=== PATIENT | female | born 1930 | race Caucasian/White ===

== ENCOUNTER 2018-01-25 18:38 | Inpatient (IN) | payer OTHER ==
[~2018-01-25] VITALS: Ht 149.9 cm; Wt 64.0 kg
--- NOTE | ~2018-01-25 | EKG ---
[place] [address] [address] [facility] [place] [address] ELECTROCARDIOGRAM REPORT Name: MICHELLE MARTINEZ Room #: 455-P ADM IN M.R.#: [id number] Admission: 01/25/18 Attend Phys: Nura Pickett DO Discharge: Date of : [birth year] Report #: [id number] THIS REPORT FOR: //name// [facility] ED Test Date: 2018-01-25 Test Time: 19:26:58 Pat Name: MICHELLE MARTINEZ Department: Room: [facility] Gender: F Lining Closer: chika : 1930 Requested By: Kitty Sanchez Order Number: [id number] MD: Dre Simons Measurements Intervals [place] Rate: 78 P: 157 NV: 152 QRS: -10 QRSD: 104 T: 104 QT: 400 QTc: 456 Interpretive Statements Atrial fibrillation with occasional premature ventricular complexes Poor R wave progression Nonspecific ST and T wave abnormality Compared to ECG 05/11/2016 06:51:20 Ectopic atrial rhythm now present Ventricular premature complex(es) now present Electronically Signed On 01-26-2018 17:19:38 CDT by Dre Simons [email or web address] <ELECTRONICALLY SIGNED> By: Dre Simons MD, [facility] 01/26/18 1719 192 25 Dre Simons MD, [facility] /EPI
--- NOTE | ~2018-01-25 | H ---
[facility] [place] [address] HISTORY AND PHYSICAL Name: MICHELLE MARTINEZ Room #: 455-P ADM IN M.R.#: [id number] Admission: 01/25/18 Attend Phys: Nura Pickett DO Discharge: Date of : [birth year] Report #: [id number] THIS REPORT FOR: //name// CC: Dre Simons MD [facility] Nura Cook MD DATE OF SERVICE: 01/25/2018 HISTORY OF PRESENT ILLNESS: This is an 87-year-old white female who was admitted after overnight observation status because of nausea, vomiting, abdominal pain, weakness and dyspnea. The patient was seen in my office on 01/11/2018 with acute bronchitis and was placed on Levaquin, prednisone taper, Xopenex HFA 2 puffs q. 4 hours and she thought she was getting better, but she remained weak. Then last night before dinner, she developed abdominal pain with chills and severe nausea and vomited four times. Her family brought her to the Emergency Room where she vomited again. This morning, she still feels weak with some abdominal discomfort, but wants to try to eat. After vomiting several times, she had some blood streaked emesis. She has not had melena; however, she has been iron deficient and taking oral iron recently. 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 PAST SURGICAL HISTORY: She has had cholecystectomy, right shoulder surgery, tonsillectomy besides her complete hysterectomy. MEDICATIONS ON ADMISSION: Coumadin 2.5 mg daily, Flonase spray 1 each nostril daily, latanoprost 0.05% 1 drop each eye at bedtime, Prolia 60 mg subcutaneously every 6 months for osteoporosis, Simbrinza 1 drop affected eye twice a day, Symbicort 160/4.5 two puffs b.i.d., Mag-Ox 400 mg every other day, vitamin D 1600 mg daily, torsemide 20 mg b.i.d., ranitidine 150 mg at bedtime, spironolactone 25 mg daily, metoprolol succinate 25 mg daily, KCl 10 mEq once daily, fenofibrate 145 mg daily, L-thyroxine 0.075 mg daily. She recently stopped omeprazole and Niaspan. ALLERGIES: MORPHINE AND PENICILLIN. REVIEW OF SYSTEMS: She lives in a shelter community. She usually walks to [address] [address] HISTORY AND PHYSICAL Name: MICHELLE MARTINEZ Room #: 455-P [facility] IN M.R.#: [id number] Admission: 01/25/18 Attend Phys: Nura Pickett DO Discharge: Date of : [birth year] Report #: [id number] the dining room 3 times a day with her walker. She wears oxygen at 2-3 L continuously and sleeps with BiPAP. She has not had chest pain or diarrhea or dysuria, rash, confusion or dysphagia. PHYSICAL EXAMINATION: GENERAL: Pleasant, elderly white female looking somewhat frail. VITAL SIGNS: BP 150/48, temperature 37.0, pulse is 100, respirations 20, O2 sat 93% on 3 liters by nasal cannula. HEAD: No rash or trauma. EARS, NOSE AND THROAT: No oral lesions. No conjunctivitis. EYES: No icterus. No excessive conjunctivitis. NECK: Supple, without bruits. LUNGS: Clear at present. She was wheezing in my office 2 weeks ago. HEART: Rhythm irregular with atrial fib, but rate is controlled. ABDOMEN: Soft, without mass, tenderness or guarding. Bowel sounds are present. EXTREMITIES: Have trace ankle edema. NEUROLOGIC: She is alert and well oriented and an accurate historian. Has sensory deficits in her feet. No lateralized deficits. LABORATORY DATA: Chest x-ray shows chronic interstitial edema without vascular congestion. Urinalysis shows pyuria and culture is negative. BNP is elevated to 1215, but her creatinine is elevated to 1.7, BUN up to 90. Sodium 134, potassium 3.8, CO2 of 31, blood sugar 104, lactic acid 0.7, calcium 10.5. Liver enzymes normal. Albumin normal. Protime INR 2.7, hemoglobin 10.4, white count 22,000. IMPRESSION: 1. Nausea and vomiting, abdominal discomfort, possibly gastroenteritis. 2. Dyspnea and fatigue with recent acute bronchitis, possibly vhnzr-sq-spgffkv diastolic congestive heart failure. 3. Chronic obstructive pulmonary disease with pulmonary hypertension and restrictive lung disease. 4. Chronic atrial fibrillation. 5. Obstructive sleep apnea. 6. Chronic kidney disease stage 3. 7. Lumbar degenerative disk disease. 8. Idiopathic peripheral neuropathy. 9. Mixed hyperlipidemia. 10. Hypothyroidism. 11. Hypertension, essential. PLAN: Advance diet, continue telemetry, echocardiogram per the welding operator's recommendations, increase diuresis, await urine culture, try to stop IV fluids, physical therapy, to increase activity. [facility] [address] [place] [address] HISTORY AND PHYSICAL Name: MICHELLE MARTINEZ Room #: 455-P [facility] IN .R.#: [id number] Admission: 01/25/18 Attend Phys: Nura Pickett DO Discharge: Date of : [birth year] Report #: [id number] PROGNOSIS: Guarded. <ELECTRONICALLY SIGNED> By: Nura Pickett DO 01/27/18 0730 1141 1226 Nura Pickett DO /nt
--- NOTE | ~2018-01-25 | HC ---
[facility] [place] [address] CONSULTATION Name: MICHELLE MARTINEZ Room #: 455-P ADM IN M.R.#: [id number] Admission: 01/25/18 Attend Phys: Nura Pickett DO Discharge: Date of : [birth year] Report #: [id number] THIS REPORT FOR: //name// CC: Nura Pickett REASON FOR CONSULTATION: Atrial fibrillation. HISTORY OF PRESENT ILLNESS: The patient is an 87-year-old woman with a history of permanent atrial fibrillation as well as severe oxygen dependent lung disease and pulmonary hypertension. She has sleep apnea for which she uses nocturnal BiPAP. Prior echocardiography has demonstrated normal left ventricular systolic function with severe pulmonary hypertension. She now presents with a month of nonproductive cough, generalized weakness and occasional nausea. She has also had several episodes of emesis. She has had occasional, mild lower extremity edema without orthopnea. Her atrial fibrillation has been rate controlled and clinically asymptomatic. No fevers, chills or night sweats. ALLERGIES: SHE IS ALLERGIC TO PENICILLIN AND MORPHINE. PAST MEDICAL HISTORY: Her past history of medical records have been reviewed and include a history of hypertension, severe pulmonary hypertension, COPD, sleep apnea, cataract excision, chronic kidney disease, history of gallstone pancreatitis with laparoscopic cholecystectomy, breast biopsy, rotator cuff surgery, hysterectomy. MEDICATIONS: Include metoprolol succinate 25 mg daily, levothyroxine 75 mcg daily, Aldactone 25 mg daily, potassium 20 mEq daily, torsemide 40 mg daily, Symbicort, ranitidine, warfarin 3.5 mg daily. SOCIAL HISTORY: She has never been a smoker. She lives at [place]. FAMILY HISTORY: Unremarkable for premature coronary artery disease. REVIEW OF SYSTEMS: All systems negative except as that noted above. PHYSICAL EXAMINATION: GENERAL: This is a pleasant elderly woman in no distress. VITAL SIGNS: Blood pressure is 135/50, heart rate of 80 and irregular. She is afebrile, 4 feet 11 inches tall. HEENT: There are neither xanthelasma, subcutaneous xanthomata, oral mucosal or digital cyanosis or kyphoscoliosis present. CHEST: Reveals diminished breath sounds at both bases. CARDIOVASCULAR: Irregularly irregular rhythm with a loud pulmonic closure sound. ABDOMEN: Soft and nontender. EXTREMITIES: Without cyanosis, clubbing or edema. Radial pulses are 2+. NEUROLOGIC: She is alert with a nonfocal exam. [address] [address] CONSULTATION Name: MICHELLE MARTINEZ Room #: 455-P [facility] IN M.R.#: [id number] Admission: 01/25/18 Attend Phys: Nura Pickett DO Discharge: Date of : [birth year] Report #: [id number] LABORATORY DATA: Sodium 137, potassium 3.8, creatinine 1.6, which is at or near her baseline. Troponin 0.11. Of note, she has never had a normal troponin level dating back to 2013. None of them have been diagnostically abnormal, but none have been normal. ProBNP of 1215, normal in this age group. INR 2.7. White count 14,000, hemoglobin 9, hematocrit 27, platelet count 164. Chest x-ray demonstrates mild patchy infiltrates. CT of the abdomen demonstrates no acute intra-abdominal process. EKG: Atrial fibrillation, occasional premature ventricular aberrantly conducted supraventricular complexes. IMPRESSION: 1. Chronic obstructive pulmonary disease exacerbation; severe intrinsic lung disease and severe pulmonary hypertension. 2. Jzgda-ib-xuewuks diastolic heart failure. 3. Permanent atrial fibrillation. 4. Obstructive sleep apnea. 5. Anemia. 6. Chronic kidney disease. 7. Hypercoagulable. RECOMMENDATIONS: 1. Continued gentle diuretic therapy. 2. Echocardiogram with Doppler to reassess pulmonary artery pressures. 3. Pulmonary consultation. I suspect her primary symptoms are based on exacerbation of her severe underlying lung disease. I discussed this with the patient in detail. Thank you for asking me to participate in her care. <ELECTRONICALLY SIGNED> By: Dre Simons MD, FACC 01/26/18 1533 0822 1331 Dre Simons MD, FACC /nt
--- NOTE | ~2018-01-25 | HC ---
[facility] [place] [address] CONSULTATION Name: MICHELLE MARTINEZ Room #: 455-P [facility] IN M.R.#: [id number] Admission: 01/25/18 Attend Phys: Nura Pickett DO Discharge: 01/30/18 Date of : [birth year] Report #: [id number] THIS REPORT FOR: //name// CC: Dre Simons MD [facility] Nura Pickett DO DATE OF SERVICE: 01/26/2018 PULMONARY CONSULTATION REFERRING PROVIDER: Nura Pickett DO REASON FOR CONSULTATION: COPD and pulmonary hypertension. CHIEF COMPLAINT: Malaise. HISTORY OF PRESENT ILLNESS: Our group was asked to evaluate the patient in consultation while hospitalized at [facility]. She is well known to me from longstanding office visits for underlying COPD as well as some pulmonary hypertension and may have some underlying pulmonary fibrosis. Most recent PFTs revealed a mixed obstructive and restrictive pattern that was severe in 09/2017 with an FEV1 measured at 0.56 or 43% of predicted. Typically has some supplemental oxygen and also has a history of obstructive sleep apnea on nocturnal BiPAP with 2 liters bleed. The patient again had been feeling poorly, not feeling herself, presented to the Emergency Department for further evaluation and had some outpatient evaluation just prior to this by Dr. Pickett who noted some anemia. States she had been on some iron replacement therapy, but continued to feel poorly. Denies any significant cough. Yesterday, had some nausea, this has subsided. No fevers, chills or sweats noted. On admission, a white blood cell count was markedly elevated. Chest x-ray showed cardiomegaly and perhaps some bibasilar interstitial infiltrates that are unclear of chronicity. The patient also had a lower extremity Doppler due to patient complains of increasing lower extremity edema, right greater than left. No DVT was noted. The patient's INR was noted to be 2.7 from her chronic anticoagulant therapy. Also, evaluated by Dr. Simons of cardiology with echocardiogram pending and concerns regarding her pulmonary hypertension being more severe. Currently, resting comfortably in bed and able to ambulate some, but states she is feeling somewhat better. ALLERGIES: PENICILLIN AND MORPHINE. PAST MEDICAL HISTORY: 1. Severe COPD as described in HPI. 2. Chronic hypoxemic respiratory failure. 3. History of atrial fibrillation. [address] [address] CONSULTATION Name: MICHELLE MARTINEZ Room #: [address] [place] [address] [place] [facility].#: [id number] Admission: 01/25/18 Attend Phys: Nura Pickett, DO Discharge: 01/30/18 Date of : [birth year] Report #: [id number] 4. Gastroesophageal reflux disease. 5. Hyperlipidemia. 6. Hypertension. 7. Hypothyroidism. 8. Obstructive sleep apnea, on nocturnal BiPAP with supplemental oxygen bleed. 9. History of uterine cancer. PAST SURGICAL HISTORY: Includes cataract surgery, cholecystectomy, hernia repair, hysterectomy, surgery for retinal detachment, rotator cuff repair, and tonsillectomy. SOCIAL HISTORY: The patient is a nonsmoker, no alcohol consumption. FAMILY HISTORY: Significant for mother who had a stroke at 86 and the father of lung cancer at age 64. REVIEW OF SYSTEMS: CONSTITUTIONAL: Notes no fever or chills. Some general malaise and nausea. ENT: No upper respiratory congestion or dysphagia. CARDIOVASCULAR: As described in HPI, but no chest pains or palpitations. GASTROINTESTINAL: Nausea, some vomiting with no significant blood, some dark stools, although she attributes this to iron therapy. GENITOURINARY: No dysuria, no frequency. INTEGUMENT: Denies any rash. MUSCULOSKELETAL: Somewhat increased lower extremity edema and cramping in the lower extremities, particularly with sleep. PHYSICAL EXAMINATION: VITAL SIGNS: Afebrile, pulse 60s, respiratory rate 18, blood pressure 148/59, oxygen saturation 97% on 3 liters. GENERAL: This is a pleasant elderly woman, does not appear in distress. ENT: Clear oropharynx. NECK: Supple, no lymphadenopathy. LUNGS: Bilateral basilar inspiratory crackles, no wheezes. CARDIOVASCULAR: Heart was irregular. No murmurs. ABDOMEN: Soft, nontender, no masses, no hepatosplenomegaly. EXTREMITIES: With 1+ edema, right greater than the left. INTEGUMENT: No rash. LABORATORY DATA: White blood cell count on admission was 22.5, currently 15, hemoglobin 9, hematocrit 28, platelet count 164. Sodium 137, potassium 3.7, chloride 101, bicarbonate 28, BUN 79, creatinine 1.6, glucose 98. These labs were improved from admission. ProBNP was 1215. Troponin 0.11. Liver enzymes were normal. CT of the abdomen and pelvis was performed due to abdominal pain, nausea, vomiting. She has since subsided, but no acute findings noted, significant vascular disease in the abdomen appreciated. Lower extremity [facility] [address] [place] [address] CONSULTATION Name: MICHELLE MARTINEZ Room #: 455-P [facility] IN M.R.#: [id number] Admission: 01/25/18 Attend Phys: Nura Pickett, DO Discharge: 01/30/18 Date of : [birth year] Report #: [id number] Dopplers were negative. Chest x-ray as described previously. IMPRESSION: 1. General debilitation and malaise of unclear etiology, multitude of problems could be applied in this case including underlying anemia and perhaps worsening pulmonary hypertension that needs further evaluation. 2. Severe pulmonary hypertension, await echo findings. 3. Chronic obstructive pulmonary disease. 4. Chronic hypoxemia. 5. Bibasilar infiltrates, uncertain chronicity. 6. Anemia. SUGGESTIONS: 1. We will ask Gastroenterology to evaluate regarding low iron and anemia. 2. Await echo. 3. Noncontrast high resolution CT scan of the chest, last CT chest noted to be about 2013. 4. Continue with bronchodilators. 5. Await cultures. Continue with Rocephin for now. 6. Trend INR. 7. Diuresis as tolerated. 8. Additional recommendations will follow. Thank you for requesting our suggestions. <ELECTRONICALLY SIGNED> By: Mikie Cook MD 02/05/18 1204 1238 [id number] Mikie Cook MD /nt
--- NOTE | ~2018-01-25 | D ---
[facility] [place] [address] DISCHARGE SUMMARY Name: MICHELLE MARTINEZ Room #: 455-P ADM IN M.R.#: [id number] Admission: 01/25/18 Attend Phys: Nura Pickett DO Discharge: Date of : [birth year] Report #: [id number] THIS REPORT FOR: //name// CC: Dre Simons MD [facility] Nura Cook MD DATE OF SERVICE: 01/30/2018 DATE OF DISCHARGE: 01/30/2018. HISTORY OF PRESENT ILLNESS: This is an 87-year-old white female who was admitted with nausea, vomiting, abdominal pain, weakness and dyspnea. She had been getting ill for over the past 2 weeks, after having been treated for acute bronchitis. However, on the evening of admission, she vomited several times and was extremely nauseated. There was no hematemesis or melena. PAST MEDICAL HISTORY: Her past history includes COPD; chronic atrial fibrillation; hypertension; chronic anemia; obstructive sleep apnea; hypothyroidism; adenocarcinoma of the uterus, treated with complete hysterectomy; osteoporosis; restrictive lung disease and idiopathic peripheral neuropathy. PHYSICAL EXAMINATION: GENERAL: Revealed an uncomfortable, tachypneic white female. VITAL SIGNS: She was afebrile. BP 150/48. HEAD AND NECK: Revealed dry mucosa. LUNGS: Revealed some scattered wheezes. HEART: Rhythm was irregular, but rate was initially controlled. ABDOMEN: Soft and nontender. EXTREMITIES: Had trace edema. NEUROLOGIC: Alert. She had sensory deficit in her feet. She was an accurate historian. LABORATORY DATA: Chest x-ray showed chronic interstitial changes, without vascular congestion. Urinalysis showed pyuria. Blood culture was negative. BNP was high. Creatinine was elevated to 1.7, BUN up to 90, sodium 134, potassium 3.8, CO2 of 31, blood sugar 104, lactic acid 0.7 and calcium 10.5. Liver enzymes normal. Albumin normal. Initial INR 2.7. White count elevated to 22,000, hemoglobin 10.4. HOSPITAL COURSE: The patient was admitted on IV fluids, seen in consult by Dr. Simons of Cardiology and Dr. Cook of Pulmonary. An echocardiogram revealed an LVEF 55% to 60% with mild valvular aortic stenosis, moderate mitral regurgitation and pulmonary artery pressure elevated at 85. CAT scan of the chest showed cardiomegaly, dilated main pulmonary artery and a 1.2 cm left lower [facility] [address] [place] [address] DISCHARGE SUMMARY Name: MICHELLE MARTINEZ Room #: 455-P [facility] IN .R.#: [id number] Admission: 01/25/18 Attend Phys: Nura Pickett DO Discharge: Date of : [birth year] Report #: [id number] lobe pulmonary nodule, which had increased in size from [address] of the abdomen and pelvis showed diverticulosis and atherosclerosis of the renal and mesenteric vessels. Hysterectomy and cholecystectomy were noted. Venous Doppler showed no DVT. The patient was found to be iron deficient and low on thyroid. Her thyroid dose was increased and she was given 4 doses of IV Venofer before discharge. Her discharge hemoglobin was 9.8, white count 8000. Sodium 136, potassium 4.0, BUN 50, creatinine 1.9, estimated GFR 25 and blood sugar 74. B12 level normal. Folic acid level normal. On 01/30/2018, Dr. Cook thought the patient's pulmonary status was stable. He recommended no further workup of the lung nodule as it was growing so slowly. We did increase her thyroid dose and metoprolol dose and oxygen to 3 liters continuously as her O2 sat at night dropped to 85% and with ambulation, also dropped to 85% and thus, she was wearing 3 liters of oxygen. On 01/30/2018, she was discharged home on a low salt-diet, on warfarin 3 mg daily, metoprolol succinate 50 mg daily, L-thyroxine 0.1 mg daily, vitamin D 1600 units daily, spironolactone 25 mg daily, torsemide 40 mg daily, KCl 20 mEq daily, latanoprost 1 drop at bedtime, Symbicort 160/4.5 two puffs b.i.d., omeprazole 20 mg every morning, ranitidine 150 mg every evening and mag ox 1000 mg daily. Home health will draw protime and BMP on 02/05/2018. She will see me and Dr. Cook in 2 weeks in followup exam. FINAL DIAGNOSES: 1. Exacerbation of chronic obstructive lung disease. 2. Pulmonary hypertension. 3. Iron-deficiency anemia. 4. Chronic kidney disease stage 4. 5. Hypertension. 6. Chronic diastolic congestive heart failure. 7. Lumbar degenerative disk disease. 8. Chronic anemia. 9. Gastroesophageal reflux without esophagitis. 10. Degenerative arthritis of the shoulders. 11. Chronic anemia. By: [id number] 1010 Nura Pickett, DO /nt
--- NOTE | ~2018-01-25 | 2DMMODE ---
[facility] [address] [place] [address] 2 D/M-MODE ECHOCARDIOGRAM Name: MILOPAOLAToñitoMICHELLE ОЛЕГ Room #: 455-P ADM IN .R.#: [id number] Admission: 01/25/18 Attend Phys: Mary Anne Shaw Discharge: Date of : [birth year] Date of Service: 01/26/18 1509 Report #: [id number] THIS REPORT FOR: //name// APPROVED REPORT Study performed: 01/26/2018 11:02:54 EXAM: Comprehensive 2D, Doppler, and color-flow Echocardiogram Patient Location: Bedside Room #: [facility] Status: routine BSA: 1.59 HR: 72 bpm Other Information Study Quality: Adequate Indications Aortic Valve Disease COPD Pulmonary Hypertension Atrial Fibrillation Hypertension/HDD 2D Dimensions RVDd: 40.84 mm LVEF(%): 60.51 (>50%) IVSd: 9.30 (7-11mm) LVOT Diam: 16.42 (18-24mm) LVDd: 47.44 mm PWd: 10.01 (7-11mm) Ascending Ao: 22.77 (22-36mm) LVDs: 32.11 (25-40mm) Aortic Root: 22.39 mm IVC: 26.00 mm Pal's LVEF: 60.51 % Volumes Left Atrial Volume (Systole) Single Plane 4CH: 111.33 mL Single Plane 2CH: 75.56 mL LA ESV Index: 65.00 mL/m2 Aortic Valve AoV Peak Syd.: 2.13 m/s AO Peak Gr.: 18.15 mmHg LVOT Max P.58 mmHg AO Mean Gr.: 9.98 mmHg LVOT Mean P.50 mmHg AO V2 Mean: 1.48 m/s LVOT Max V: 1.18 m/s AO V2 VTI: 53.84 cm LVOT Mean V: 0.87 m/s [facility] [place] [address] 2 D/M-MODE ECHOCARDIOGRAM Name: MICHELLE MARTINEZ Room #: 455-P [facility] IN .R.#: [id number] Admission: 01/25/18 Attend Phys: Mary Anne Shaw Discharge: Date of : [birth year] Date of Service: 01/26/18 1509 Report #: [id number] REAL (VTI): 1.23 cm2 LVOT V1 VTI: 31.23 cm REAL Vmax: 1.17 cm2 AI Vmax: 3.64 m/s SV (LVOT): 66.07 mL AI Quay: 2.52 m/s2 AI PHT: 425.09 ms Mitral Valve MV Decel. Time: 148.87 ms MV E Max Syd.: 1.45 m/s Pulmonary Valve PV Peak Syd.: 1.01 m/s PV Peak Gr.: 4.06 mmHg Tricuspid Valve TR Peak Syd.: 4.39 m/s TR Peak Gr.: 77.32 mmHg PA Pressure: 87.00 mmHg Left Ventricle The left ventricle is normal size. There is normal LV segmental wall motion. There is normal left ventricular wall thickness. The left ventricular systolic function is normal. The left ventricular ejection fraction is within the normal range. LVEF is 55-60%. This study is not technically sufficient to allow evaluation of the LV diastolic function due to atrial fibrillation. Right Ventricle Right ventricle is dilated. Right ventricular systolic function is lower limits of normal. Atria Left atrium is dilated. Right atrium is dilated. Aortic Valve Aortic valve is calcified, trileaflet Mild to moderate aortic regurgitation. There is mild valvular aortic stenosis. Calculated aortic valve area is 1.3 cm2 with maximum pressure gradient of 18 mmHg and mean pressure gradient of 10 mmHg. Mitral Valve Mild mitral annular calcification Mild to moderate mitral regurgitation. No evidence of mitral valve stenosis. Tricuspid Valve The tricuspid valve is normal in structure. There is moderate tricuspid regurgitation. Estimated PAP 85 mmHg[place] [address] 2 D/M-MODE ECHOCARDIOGRAM Name: MICHELLE MARTINEZ Room #: 455-P ADM IN M.R.#: [id number] Admission: 01/25/18 Attend Phys: Mary Anne Shaw Discharge: Date of : [birth year] Date of Service: 01/26/18 1509 Report #: [id number] pulmonary hypertension. Pulmonic Valve The pulmonary valve is normal in structure. Mild pulmonic regurgitation. Great Vessels The aortic root is normal in size. IVC is dilated and collapses <50% with inspiration. Pericardium There is no pericardial effusion. <Conclusion> The left ventricular systolic function is normal. There is normal LV segmental wall motion. LVEF 55-60%. Right ventricle is dilated. Both atria are dilated. Aortic valve is calcified, trileaflet. Mild to moderate aortic regurgitation; mild stenosis. Calculated aortic valve area is 1.3 cm2 with maximum pressure gradient of 18 mmHg and mean pressure gradient of 10 mmHg. Mild mitral annular calcification Mild to moderate mitral regurgitation. There is moderate tricuspid regurgitation. Estimated pulmonary artery pressure of 85 mmHg. There is no pericardial effusion. <ELECTRONICALLY SIGNED> By: Dre Simons MD, FACC 01/26/18 1509 1509 1509 Dre Simons MD, FACC /INF
[~2018-01-25 18:38] MED LIST: ACTONEL150 MG PO; ADULT LOW DOSE81 MG PO; ADVAIR HFA115 MCG/21 INH; COUMADIN 2 MG TA2 M1 PO; COUMADIN 2.5MG2.5 M1 PO; COUMADIN 3 MG TA3 M1 PO; COUMADIN 3 MG TA3 MG PO; COUMADIN 4 MG TA4 M1 PO; COUMADIN 5 MG TA5 M1 PO; DOXYCYCLINE PO; EQUATE PM PO; EVISTA PO; FISH OIL 1,0001 EAC5 PO; FUROSEMIDE 40 M40 M1 PO; KLOR-CON 10 ER10 MEQ PO; LANOXIN 0.25M0.25 M1 PO; LATANOPROST2.5 ML OPHTHALMIC; LEVOTHROID150 MCG; LEVOTHYROXIN0.075 MG PO; LEVOTHYROXIN0.125 M1 PO; LOPRESSOR 50 MG50 M1 PO; LOPRESSOR25 PO; LOPRESSOR50 PO; MAGOX 400400 MG PO; MUCINEX TA600 MG/TAB PO; NIACIN 500 MG500 M1 PO; NIASPAN ER 101000 M1 PO; PACERONE 200 M200 M1 PO; PREDNISONE PO; PRILOSEC 20 MG20 MG PO; RANITIDINE 150150 MG PO; RESTORIL15 MG PO; SIMBRINZA 1%-0.28 ML OP; SPIRONOLACTONE25 M1 PO; SYMBICORT160 MCG/4. INH; SYNTHROID PO; TIMOLOL MA0.5 %/5 M2 GTT; TOPROL XL25 MG PO; TORSEMIDE20 MG PO; TRIAMTERENE-HC1 EAC1 PO; TRILIPIX135 MG PO; TYLENOL325 MG PO; VITAMIN D400 UNI1 PO
[2018-01-25 18:53] VITALS: BP 150/42
[2018-01-25 19:31] LABS: HEMATOCRIT 30.7 % (37.0-47.0); HEMOGLOBIN 10.4 gm/dL (12.0-15.0); MCH 29.6 pg (26.0-34.0); MCHC 33.7 g/dL (28.0-37.0); MCV 87.8 fL (80.0-100.0); PLATELET COUNT 181 thou/uL (150-400); RDW 15.4 % (10.5-14.5); WBC 22.5 thou/uL (4.0-11.0)
[2018-01-25 19:39] LABS: CALCIUM 10.5 mg/dL (8.5-10.1); CREATININE 1.7 mg/dL (0.6-1.0); POTASSIUM 3.8 mmol/L (3.5-5.1)
[2018-01-25 19:48] LABS: ALBUMIN 3.7 g/dL (3.4-5.0); TOTAL BILIRUBIN 0.7 mg/dL (<0.1-1.0); TOTAL PROTEIN 7.1 g/dL (6.4-8.2); TROPONIN-I 0.1 ng/mL (<0.06)
[2018-01-25 20:09] LABS: ABSOLUTE NEUTROPHILS 20.3 thou/uL (1.4-8.2)
[2018-01-25 20:10] LABS: ANISOCYTOSIS 1+; TEARDROPS OCCASIONAL
[2018-01-25 20:49] LABS: URINE BILIRUBIN NEGATIVE (Negative); URINE BLOOD NEGATIVE (Negative); URINE CLARITY CLEAR; URINE COLOR YELLOW; URINE GLUCOSE-RANDOM* NEGATIVE (Negative); URINE KETONES NEGATIVE (Negative); URINE LEUKOCYTES 1+ (Negative); URINE NITRITE NEGATIVE (Negative); URINE PROTEIN (DIPSTICK) NEGATIVE (Negative); URINE SPECIFIC GRAVITY <= 1.005 (1.005-1.035); URINE UROBILINOGEN 0.2 E.U./dl (0.2-1.0)
[2018-01-25 21:04] LABS: BACTERIA None Seen /HPF (None Seen); CASTS None Seen /LPF (None Seen); CRYSTALS None Seen /LPF (None Seen); SQUAMOUS 4-10 Moderate /LPF (0-3); URINE RBC None Seen /HPF (0-2); URINE WBC 6-15 Few /HPF (0-5); WBC CLUMPS Few (None Seen)
[2018-01-25 21:40] LABS: INR 2.7
[2018-01-25 22:08] VITALS: BP 135/67
[2018-01-25] MEDS ORDERED: WARFARIN PO (23:43)
[2018-01-25] MEDS ORDERED: NF PO (23:47)
[2018-01-25] MEDS ORDERED: IRON325 PO (23:48)
[2018-01-26 03:19] VITALS: BP 135/50
[2018-01-26 06:01] LABS: HEMATOCRIT 27.7 % (37.0-47.0); HEMOGLOBIN 9.2 gm/dL (12.0-15.0); MCH 29.6 pg (26.0-34.0); MCHC 33.4 g/dL (28.0-37.0); MCV 88.5 fL (80.0-100.0); RBC 3.13 mil/uL (4.20-5.00); RDW 15.5 % (10.5-14.5); WBC 14.8 thou/uL (4.0-11.0)
[2018-01-26 06:03] LABS: CALCIUM 10.1 mg/dL (8.5-10.1); CREATININE 1.6 mg/dL (0.6-1.0); POTASSIUM 3.7 mmol/L (3.5-5.1)
[2018-01-26 06:12] LABS: TROPONIN-I 0.11 ng/mL (<0.06)
[2018-01-26 08:00] VITALS: BP 148/59
[2018-01-26 09:53] LABS: % SATURATION 13 % (20-39); IRON 46 ug/dL (50-170); TIBC 355 ug/dL (250-450)
[2018-01-26 16:00] VITALS: BP 142/48
[2018-01-26 19:50] VITALS: BP 120/36
[2018-01-27 03:37] VITALS: BP 130/46
[2018-01-27 05:08] LABS: HEMOGLOBIN 8.8 gm/dL (12.0-15.0); MCH 30.1 pg (26.0-34.0); MCHC 33.7 g/dL (28.0-37.0); MCV 89.2 fL (80.0-100.0); PLATELET COUNT 138 thou/uL (150-400); RBC 2.92 mil/uL (4.20-5.00); RDW 15.8 % (10.5-14.5); WBC 8.9 thou/uL (4.0-11.0)
[2018-01-27 05:21] LABS: INR 2.5; PROTIME 25.1 Seconds (9.3-11.4)
[2018-01-27 05:31] LABS: CALCIUM 9.9 mg/dL (8.5-10.1); CREATININE 1.9 mg/dL (0.6-1.0); POTASSIUM 4.4 mmol/L (3.5-5.1); TROPONIN-I 0.12 ng/mL (<0.06)
[2018-01-27 05:33] LABS: ABSOLUTE NEUTROPHILS 6.4 thou/uL (1.4-8.2); ANISOCYTOSIS SLIGHT
[2018-01-27 07:50] VITALS: BP 135/49
[2018-01-27 19:34] VITALS: BP 128/37
[2018-01-28 04:39] VITALS: BP 122/44
[2018-01-28 07:14] VITALS: BP 126/38
[2018-01-28 09:13] VITALS: BP 113/52
[2018-01-28 16:37] VITALS: BP 126/58
[2018-01-28 19:14] VITALS: BP 111/57
[2018-01-28 23:03] LABS: MAGNESIUM 1.4 mg/dL (1.8-2.4); POTASSIUM 4.1 mmol/L (3.5-5.1)
[2018-01-29 05:38] LABS: HEMATOCRIT 29.4 % (37.0-47.0); MCH 30.1 pg (26.0-34.0); MCHC 33.9 g/dL (28.0-37.0); MCV 88.9 fL (80.0-100.0); PLATELET COUNT 176 thou/uL (150-400); RBC 3.31 mil/uL (4.20-5.00); RDW 15.9 % (10.5-14.5); WBC 9.1 thou/uL (4.0-11.0)
[2018-01-29 05:40] VITALS: BP 117/66
[2018-01-29 05:57] LABS: ALBUMIN 3.2 g/dL (3.4-5.0); CALCIUM 10.6 mg/dL (8.5-10.1); CREATININE 1.9 mg/dL (0.6-1.0); TOTAL BILIRUBIN 0.5 mg/dL (<0.1-1.0); TOTAL PROTEIN 6.7 g/dL (6.4-8.2)
[2018-01-29 06:28] LABS: FOLIC ACID 19.6 ng/mL (8.6-58.9)
[2018-01-29 08:00] VITALS: BP 109/48
[2018-01-29 08:28] LABS: ABSOLUTE NEUTROPHILS 6.6 thou/uL (1.4-8.2); PLATELET ESTIMATE NORMAL
[2018-01-29 16:00] VITALS: BP 125/53
[2018-01-29 19:35] VITALS: BP 131/60
[2018-01-30 05:09] LABS: HEMATOCRIT 29.1 % (37.0-47.0); HEMOGLOBIN 9.8 gm/dL (12.0-15.0); MCHC 33.8 g/dL (28.0-37.0); MCV 88.9 fL (80.0-100.0); PLATELET COUNT 181 thou/uL (150-400); RBC 3.28 mil/uL (4.20-5.00); RDW 16.3 % (10.5-14.5)
[2018-01-30 05:33] LABS: INR 1.9; PROTIME 19.4 Seconds (9.3-11.4)
[2018-01-30 08:23] LABS: ABSOLUTE NEUTROPHILS 4.8 thou/uL (1.4-8.2); METAMYELOCYTES 1 %
[2018-01-30 08:24] LABS: ANISOCYTOSIS 1+
[2018-01-30 08:30] VITALS: BP 136/61
[2018-01-30] MEDS ORDERED: METOPROLOL SUCC50 MG PO (09:03)
[2018-01-30] MEDS ORDERED: LEVOTHYROXINE100 MCG PO (09:04)
[2018-01-30] MEDS ORDERED: COUMADIN 3 MG TA3 M1 PO (09:04)
[2018-01-30 11:40] VITALS: BP 130/61
[2018-01-30 16:05] VITALS: BP 107/47
[2018-01-30 19:02] VITALS: BP 130/61
== END 2018-01-30 19:02 | disposition home or self-care (01) | DRG 871 ==
LOC: ER 18:38 → EROBS 21:11 → 4W 21:11 → ENTRNSPT 01-30 18:43 → 4W 01-30 19:02
PROVIDERS: Family Medicine; Internal Medicine; Physician Assistant
PROC: 5A09357 Assistance with Respiratory Ventilation, Less than 24 Consecutive Hours, Continuous Positive Airway Pressure (ICD-10-PCS; principal; 2018-01-27)
PROC: 5A09357 Assistance with Respiratory Ventilation, Less than 24 Consecutive Hours, Continuous Positive Airway Pressure (ICD-10-PCS; 2018-01-28)
PROC: 5A09357 Assistance with Respiratory Ventilation, Less than 24 Consecutive Hours, Continuous Positive Airway Pressure (ICD-10-PCS; 2018-01-29)
PROC: 5A09357 Assistance with Respiratory Ventilation, Less than 24 Consecutive Hours, Continuous Positive Airway Pressure (ICD-10-PCS; 2018-01-30)
DX: A41.9 Sepsis, unspecified organism (principal); I50.33 Acute on chronic diastolic (congestive) heart failure; J44.1 Chronic obstructive pulmonary disease with (acute) exacerbation; N39.0 Urinary tract infection, site not specified; D68.59 Other primary thrombophilia; J96.11 Chronic respiratory failure with hypoxia; N18.4 Chronic kidney disease, stage 4 (severe); I13.0 Hypertensive heart and chronic kidney disease with heart failure and stage 1 through stage 4 chronic kidney disease, or unspecified chronic kidney disease; I48.2 Chronic atrial fibrillation; G47.33 Obstructive sleep apnea (adult) (pediatric); K21.9 Gastro-esophageal reflux disease without esophagitis; G60.9 Hereditary and idiopathic neuropathy, unspecified; D50.9 Iron deficiency anemia, unspecified; M51.36 Other intervertebral disc degeneration, lumbar region; M19.019 Primary osteoarthritis, unspecified shoulder; E78.2 Mixed hyperlipidemia; D72.829 Elevated white blood cell count, unspecified; R91.1 Solitary pulmonary nodule; E83.42 Hypomagnesemia; I27.20 Pulmonary hypertension, unspecified; E03.9 Hypothyroidism, unspecified; Z98.42 Cataract extraction status, left eye; Z88.6 Allergy status to analgesic agent; Z88.0 Allergy status to penicillin; Z90.49 Acquired absence of other specified parts of digestive tract; Z90.710 Acquired absence of both cervix and uterus; Z82.49 Family history of ischemic heart disease and other diseases of the circulatory system; Z85.42 Personal history of malignant neoplasm of other parts of uterus
CPT/HCPCS: 10045